=== PATIENT | female | born 1965 | race Two or more races ===

== ENCOUNTER → 2018-01-28 | Outpatient (CLI) | payer OTHER ==
--- NOTE | 2018-01-28 17:22 | Diagnostic Imaging Report ---
PROCEDURE:EXTREMITY ULTRASOUND COMPARISON:None. INDICATIONS:RIGHT THIGH POSTERIOR PALP MASS TECHNIQUE:Focused right posterior thigh ultrasound was performed to evaluate for palpable mass. FINDINGS: Focused ultrasound demonstrates a 2.2 x 1.6 x 0.7 cm well-circumscribed hyperechoic subcutaneous solid nodule in the right posterior thigh. No significant vascular flow is present on Doppler imaging. CONCLUSION: Ultrasound demonstrating well-circumscribed subcutaneous nodule in the right posterior thigh. Differential includes non-aggressive soft tissue lesion such as lipoma. Dictated by: ANJU RUCKER M.D. on 01/28/2018 at 17:26 Electronically approved by: ANJU RUCKER M.D. on 01/28/2018 at 17:26
== END ==
LOC: US 16:21
PROVIDERS: ATTEND Family Medicine
DX: R22.41 Localized swelling, mass and lump, right lower limb (principal)
CPT/HCPCS: 76882